=== PATIENT | male | born 1990 | race Caucasian/White ===

== ENCOUNTER 2016-08-18 18:54 | Emergency (ER) | payer OTHER ==
[~2016-08-18] VITALS: Ht 162.6 cm; Wt 89.3 kg
[2016-08-18 22:06] VITALS: BP 124/84
== END 2016-08-18 22:06 | disposition home or self-care (01) ==
LOC: ED 18:54
DX: M43.6 Torticollis (principal); S43.402A Unspecified sprain of left shoulder joint, initial encounter; W18.39XA Other fall on same level, initial encounter; Y93.66 Activity, soccer; Y92.89 Other specified places as the place of occurrence of the external cause; Y99.8 Other external cause status

== ENCOUNTER 2016-10-18 12:44 | Emergency (ER) | payer OTHER ==
[~2016-10-18] VITALS: Ht 162.6 cm; Wt 91.2 kg
[2016-10-18 12:45] VITALS: BP 128/82
== END 2016-10-18 14:25 | disposition home or self-care (01) ==
LOC: ED 12:44
DX: S46.912A Strain of unspecified muscle, fascia and tendon at shoulder and upper arm level, left arm, initial encounter (principal); Y93.66 Activity, soccer; Y99.8 Other external cause status; Y92.89 Other specified places as the place of occurrence of the external cause
CPT/HCPCS: J1885; Q0092

== ENCOUNTER 2016-11-01 13:30 | Emergency (ER) | payer OTHER ==
[2016-11-01 15:05] VITALS: BP 121/51
== END 2016-11-01 15:05 | disposition home or self-care (01) ==
LOC: ED 13:30
DX: S90.01XA Contusion of right ankle, initial encounter (principal); W17.89XA Other fall from one level to another, initial encounter; Y93.66 Activity, soccer; Y92.89 Other specified places as the place of occurrence of the external cause; Y99.8 Other external cause status

== ENCOUNTER 2016-12-27 10:15 | Emergency (ER) | payer SELFPAY ==
[~2016-12-27] VITALS: Ht 162.6 cm; Wt 86.2 kg
[2016-12-27 11:37] VITALS: BP 140/92
== END 2016-12-27 11:45 | disposition home or self-care (01) ==
LOC: ED 10:15
DX: S96.911A Strain of unspecified muscle and tendon at ankle and foot level, right foot, initial encounter (principal); F41.9 Anxiety disorder, unspecified; W22.8XXA Striking against or struck by other objects, initial encounter; Y93.66 Activity, soccer; Y92.89 Other specified places as the place of occurrence of the external cause; Y99.8 Other external cause status

== ENCOUNTER 2017-03-02 16:14 | Emergency (ER) | payer OTHER ==
[~2017-03-02] VITALS: Ht 160 cm; Wt 90.7 kg
[2017-03-02 16:53] VITALS: Ht 160 cm; Wt 90.7 kg
[2017-03-02 20:17] VITALS: BP 121/79
== END 2017-03-02 20:17 | disposition home or self-care (01) ==
LOC: ED 16:14
DX: S46.912A Strain of unspecified muscle, fascia and tendon at shoulder and upper arm level, left arm, initial encounter (principal); W17.89XA Other fall from one level to another, initial encounter; Y93.66 Activity, soccer; Y92.89 Other specified places as the place of occurrence of the external cause; Y99.8 Other external cause status

== ENCOUNTER 2017-03-29 11:03 | Emergency (ER) | payer OTHER ==
[~2017-03-29] VITALS: Ht 160 cm; Wt 90.7 kg
[2017-03-29 11:08] VITALS: BP 125/80; Ht 160 cm; Wt 90.7 kg
== END 2017-03-29 12:10 | disposition home or self-care (01) ==
LOC: ED 11:03
DX: S90.01XA Contusion of right ankle, initial encounter (principal); F41.9 Anxiety disorder, unspecified; W21.89XA Striking against or struck by other sports equipment, initial encounter; Y93.89 Activity, other specified; Y92.89 Other specified places as the place of occurrence of the external cause; Y99.8 Other external cause status

== ENCOUNTER 2017-08-02 14:23 | Emergency (ER) | payer OTHER | END 2017-08-02 15:28 | disposition left against medical advice (07) | LOC: ED 14:23 | DX: Z53.21 Procedure and treatment not carried out due to patient leaving prior to being seen by health care provider (principal) ==

== ENCOUNTER 2017-08-15 11:10 | Emergency (ER) | payer SELFPAY ==
[~2017-08-15] VITALS: Ht 162.6 cm; Wt 90.4 kg
[2017-08-15 12:35] VITALS: BP 126/92
== END 2017-08-15 12:35 | disposition home or self-care (01) ==
LOC: ED 11:10
DX: S63.615A Unspecified sprain of left ring finger, initial encounter (principal); W22.8XXA Striking against or struck by other objects, initial encounter; Y93.89 Activity, other specified; Y92.89 Other specified places as the place of occurrence of the external cause; Y99.8 Other external cause status

== ENCOUNTER 2018-02-13 08:29 | Emergency (ER) | payer OTHER ==
[~2018-02-13] VITALS: Ht 162.6 cm; Wt 93.0 kg
[2018-02-13 08:32] VITALS: BP 128/78; Ht 162.6 cm; Wt 93.0 kg
== END 2018-02-13 10:59 | disposition home or self-care (01) ==
LOC: ED 08:29
DX: S93.402A Sprain of unspecified ligament of left ankle, initial encounter (principal); F41.9 Anxiety disorder, unspecified; W21.02XA Struck by soccer ball, initial encounter; Y93.66 Activity, soccer; Y92.322 Soccer field as the place of occurrence of the external cause; Y99.8 Other external cause status
CPT/HCPCS: Q0092

== ENCOUNTER 2018-09-11 05:50 | Emergency (ER) | payer OTHER ==
[~2018-09-11] VITALS: Ht 162.6 cm; Wt 94.3 kg
[2018-09-11 05:54] VITALS: Ht 162.6 cm; Wt 94.3 kg
[2018-09-11 06:29] VITALS: BP 139/86
== END 2018-09-11 06:29 | disposition home or self-care (01) ==
LOC: ED 05:50
DX: R19.7 Diarrhea, unspecified (principal); F17.210 Nicotine dependence, cigarettes, uncomplicated; E66.9 Obesity, unspecified; F41.9 Anxiety disorder, unspecified; Z68.35 Body mass index [BMI] 35.0-35.9, adult
CPT/HCPCS: 99406

== ENCOUNTER 2018-12-11 07:27 | Emergency (ER) | payer SELFPAY ==
[~2018-12-11] VITALS: Ht 162.6 cm; Wt 97.1 kg
[2018-12-11 07:30] VITALS: BP 129/76; Ht 162.6 cm; Wt 97.1 kg
== END 2018-12-11 08:40 | disposition home or self-care (01) ==
LOC: ED 07:27
DX: S93.491A Sprain of other ligament of right ankle, initial encounter (principal); F41.9 Anxiety disorder, unspecified; F17.210 Nicotine dependence, cigarettes, uncomplicated; X50.1XXA Overexertion from prolonged static or awkward postures, initial encounter; Y93.02 Activity, running; Y92.89 Other specified places as the place of occurrence of the external cause; Y99.8 Other external cause status

== ENCOUNTER 2019-01-01 08:29 | Emergency (ER) | payer SELFPAY ==
[~2019-01-01] VITALS: Ht 165.1 cm; Wt 95.7 kg
[2019-01-01 08:35] VITALS: Ht 165.1 cm; Wt 95.7 kg
[2019-01-01 10:35] VITALS: BP 120/81
== END 2019-01-01 10:35 | disposition home or self-care (01) ==
LOC: ED 08:29
DX: S93.402A Sprain of unspecified ligament of left ankle, initial encounter (principal); F41.9 Anxiety disorder, unspecified; X50.1XXA Overexertion from prolonged static or awkward postures, initial encounter; Y93.66 Activity, soccer; Y92.322 Soccer field as the place of occurrence of the external cause; Y99.8 Other external cause status

== ENCOUNTER 2019-08-13 12:22 | Emergency (ER) | payer SELFPAY ==
[~2019-08-13] VITALS: Ht 162.6 cm; Wt 94.3 kg
[2019-08-13 13:33] VITALS: Ht 162.6 cm; Wt 94.3 kg
[2019-08-13 15:07] VITALS: BP 120/76
== END 2019-08-13 15:07 | disposition home or self-care (01) ==
LOC: ED 12:22
DX: R42 Dizziness and giddiness (principal); R06.02 Shortness of breath; F41.9 Anxiety disorder, unspecified
CPT/HCPCS: Q0092

== ENCOUNTER 2020-03-09 12:30 | Emergency (ER) | payer SELFPAY ==
[~2020-03-09] VITALS: Ht 162.6 cm; Wt 86.2 kg
[2020-03-09 12:31] VITALS: BP 135/89; Ht 162.6 cm; Wt 86.2 kg
== END 2020-03-09 13:50 | disposition home or self-care (01) ==
LOC: ED 12:30
DX: U07.1 COVID-19 (principal); J12.82 Pneumonia due to coronavirus disease 2019